=== PATIENT | male | born 1960 | race African-American/Black ===

== ENCOUNTER 2021-03-31 18:11 | Inpatient (IN) | payer SELFPAY ==
--- NOTE | 2021-03-31 18:29 | Event Note ---
ED Screening Note Date of service: 03/31/21 Time: 18:27 ED Screening Note: 61-year-old male patient presents to the emergency department with complaints of shortness of breath for 4 days. No known sick contacts. No current steroid antibiotic use. No recent travel. Patient was evaluated by an outside clinic prior to arrival and he was sent to the emergency department due to low oxygen saturation. States he has no known history of cardiopulmonary disease. Tachycardic and hypoxic on arrival. General: Awake, appropriately interactive, no acute distress. Neck: Supple. Full range of motion intact. Cardiovascular: Tachycardic. Normal peripheral perfusion. No lower extremity edema. Pulmonary: Mildly diminished breath sounds along both lung bases. No wheezing. No respiratory distress. Patient is speaking normally without use of accessory muscles. Skin: No apparent rashes or lesions. Neurological: No facial asymmetry. Speech is clear. Follows commands. Patient is alert and oriented. Musculoskeletal: Moves all four extremities spontaneously with normal range of motion. Psych: Cooperative. Appropriate mood and affect. library monitor, continuous pulse oximetry, supplemental oxygen, peripheral IV access requested. Labs including lactic acid + blood cultures and chest x-ray ordered. Charge nurse aware of need for monitored bed. I have greeted and performed a focused rapid initial assessment of this patient. A comprehensive ED assessment and evaluation of the patient, analysis of all test results, and completion of the medical decision-making process will be conducted by additional ED providers. This initial assessment/diagnostic orders/clinical plan/treatment(s) is/are subject to change based on patients health status, clinical progression and re-assessment. Further treatment and workup at subsequent clinical provider's discretion. Patient/guardian urged not to elope from the ED as their condition may be serious if not clinically assessed and managed.
[2021-03-31 18:57] LABS: Basophils # (Auto) 0.1 K/mm3 (0.0-0.1); Basophils % (Auto) 0.9 % (0.0-1.8); Eosinophils # (Auto) 0.2 K/mm3 (0.0-0.4); Eosinophils % (Auto) 1.9 % (0.0-4.3); Hematocrit 41.8 % (35.5-45.6); Hemoglobin 14.4 gm/dl (11.8-15.2); Lymphocytes # (Auto) 1.4 K/mm3 (1.2-5.4); Lymphocytes % (Auto) 13.7 % (13.4-35.0); Mean Corpuscular HGB Conc 35 % (32-34); Mean Corpuscular Volume 89 fl (84-94); Monocytes # (Auto) 0.4 K/mm3 (0.0-0.8); Monocytes % (Auto) 3.9 % (0.0-7.3); Platelet Count 359 K/mm3 (140-440); Red Blood Count 4.72 M/mm3 (3.65-5.03); Red Cell Distribution Width 13.5 % (13.2-15.2)
--- NOTE | 2021-03-31 18:57 | XRay Report ---
CHEST 2 VIEWS INDICATION: SOB. COMPARISON: None FINDINGS: SUPPORT DEVICES: None. HEART: Within normal limits. LUNGS/PLEURA: Moderate patchy multifocal airspace disease. No pneumothorax. ADDITIONAL FINDINGS: None. IMPRESSION: 1. Lung findings as above. Signer Name: Sloan Pierre MD Signed: 03/31/2021 6:53 PM Workstation Name: [id number]
[2021-03-31 19:20] LABS: Alanine Aminotransferase 91 units/L (7-56); Albumin 3.1 g/dL (3.9-5); BUN/Creatinine Ratio 22; Blood Urea Nitrogen 20 mg/dL (9-20); Calcium 8.6 mg/dL (8.4-10.2); Hemolysis Index 8
[2021-03-31] MEDS ORDERED: AZITHROMYCIN/NS 500 MG/250 ML 500 MG/250 ML BAG IV ONE (22:05)
[2021-03-31] MEDS ORDERED: cefTRIAXone/NS 2 GM/100 ML 2 GM/100 ML BAG IV ONE (22:05)
[2021-03-31] MEDS ORDERED: dexAMETHasone 4 MG/ML VIAL IV ONE (22:05)
--- NOTE | 2021-03-31 22:06 | Emergency Department Report ---
ED Shortness of Breath HPI - General Chief Complaint: Dyspnea/Respdistress Stated Complaint: DIFF BREATHING Time Seen by Provider: 03/31/21 21:32 Source: patient Mode of arrival: Ambulatory Limitations: No Limitations - History of Present Illness Initial Comments: Patient is a 61-year-old male who presents emergency room for shortness of breath, mild cough. Patient states his symptoms are going on for 4 days. Patient symptoms are worsening. Patient denies fever, nausea, vomiting or diarrhea. Patient states that his shortness of breath better with rest and worse with exertion. Patient states the oxygen that he was given at the clinic today also helped his shortness of breath. Patient states he went to a local urgent care/clinic and was sent here for hypoxia. Patient states they told him his oxygen level was 85% on room air at the clinic. Patient states they tested him at the clinic today and his COVID-19 test was negative. Patient states he is not vaccinated against COVID-19. Patient denies recent travel. Patient denies recent international travel. Patient denies exposure to the novel coronavirus. Patient denies sick contacts. Patient denies fever and chills. Patient denies loss of smell. Patient denies diarrhea. Patient denies coming in contact with anybody with symptoms of the novel coronavirus. MD Complaint: shortness of breath, cough -: Sudden, days(s) Severity: severe Consistency: constant Improves With: oxygen, rest Worsens With: exertion Context: recent URI Associated Symptoms: cough Treatments Prior to Arrival: none - Related Data Home Oxygen Therapy: No Allergies Allergy/AdvReac Type Severity Reaction Status Date / Time No Known Allergies Allergy Verified 03/31/21 18:14 ED Review of Systems ROS: Stated complaint: DIFF BREATHING Other details as noted in HPI Constitutional: denies: chills, fever Eyes: denies: eye pain, eye discharge, vision change ENT: denies: ear pain, throat pain Respiratory: see HPI, cough, shortness of breath. denies: wheezing Cardiovascular: denies: chest pain, palpitations Endocrine: no symptoms reported Gastrointestinal: denies: abdominal pain, nausea, diarrhea Genitourinary: denies: urgency, dysuria Musculoskeletal: denies: back pain, joint swelling, arthralgia Skin: denies: rash, lesions Neurological: denies: headache, weakness, paresthesias Psychiatric: denies: anxiety, depression Hematological/Lymphatic: denies: easy bleeding, easy bruising ED Past Medical Hx - Past Medical History Previous Medical History?: Yes Hx Hypertension: Yes - Surgical History Past Surgical History?: No - Family History Family history: no significant - Social History Smoking Status: Never Smoker Substance Use Type: None ED Physical Exam - General Limitations: No Limitations General appearance: alert, in distress - Head Head exam: Present: atraumatic, normocephalic - Eye Eye exam: Present: normal appearance - ENT ENT exam: Present: mucous membranes moist - Neck Neck exam: Present: normal inspection - Respiratory Respiratory exam: Present: respiratory distress, decreased breath sounds - Cardiovascular Cardiovascular Exam: Present: regular rate, normal rhythm. Absent: systolic murmur, diastolic murmur, rubs, gallop - GI/Abdominal GI/Abdominal exam: Present: soft, normal bowel sounds - Rectal Rectal exam: Present: deferred - Extremities Exam Extremities exam: Present: normal inspection - Back Exam Back exam: Present: normal inspection - Neurological Exam Neurological exam: Present: alert, oriented X3 - Psychiatric Psychiatric exam: Present: normal affect, normal mood - Skin Skin exam: Present: warm, dry, intact, normal color. Absent: rash ED Course Vital Signs 03/31/21 03/31/21 03/31/21 18:16 19:10 20:31 Temperature 97.9 F 98.5 F Pulse Rate 129 H 110 H 111 H Respiratory 22 20 Rate Blood Pressure 148/104 134/87 Blood Pressure [Right] O2 Sat by Pulse 91 94 Oximetry 04/01/21 04/01/21 01:30 03:09 Temperature Pulse Rate 87 Respiratory 22 27 H Rate Blood Pressure Blood Pressure 143/91 [Right] O2 Sat by Pulse 96 92 Oximetry - Reevaluation(s) Reevaluation #1: Patient is currently on 4 L of oxygen satting 94%. Patient will be given IV antibiotics and Decadron. 03/31/21 21:47 Reevaluation #2: I discussed all results with patient. I discussed plan of care with patient. Patient agrees with plan of care and admission. Patient to be admitted to the hospitalist service. 03/31/21 22:08 Reevaluation #3: While reviewing labs, patient's D-dimer was found to be elevated. I discussed with the hospitalist last week he has a CTA is indicated. A CT a of the chest will be ordered. 04/01/21 02:58 Reevaluation #4: CTA came back as a PE. Patient will be placed on a heparin drip. I discussed plan of care with patient. Patient agrees with plan of care. 04/01/21 05:40 - Consultations Consultation #1: Covid panel ordered and the hospitalist to follow. ID consulted. 03/31/21 22:05 Consultation #2: Hospitalist consulted for admission. Hospitalist to admit patient. 03/31/21 22:[address] information. 04/01/21 05:40 ED Medical Decision Making - Lab Data Result diagrams: 03/31/21 18:44 03/31/21 22:26 - Radiology Data Radiology results: report reviewed, image reviewed interpreted by me: Chest x-ray: Bilateral pneumonia, no pneumothorax, no foreign body, no osseous findings, CHEST 2 VIEWS INDICATION: SOB. COMPARISON: None FINDINGS: SUPPORT DEVICES: None. HEART: Within normal limits. LUNGS/PLEURA: Moderate patchy multifocal airspace disease. No pneumothorax. ADDITIONAL FINDINGS: None. IMPRESSION: 1. Lung findings as above. - Medical Decision Making Patient is a 61-year-old male who presents emergency with complaints of shortness of breath and mild cough. Patient was sent here from a local urgent care/clinic for hypoxia. Patient was found to have 85% oxygen level at the outpatient clinic. Patient was immediately placed on oxygen here. Patient on 4 L satting 94%. Patient had labs done which were essentially unremarkable. Patient had a chest x-ray done which shows bilateral viral appearing pneumonia. Chest x-ray is consistent with Covid infection. Patient states he had a negative Covid today. Patient given Rocephin, Decadron and Zithromax. ID consult. Patient admitted to the hospital service for further evaluation treatment. Patient's Covid panel and Covid test was ordered for the hospitalist to follow-up on. Critical care time documented due to the multiple reassessments, prolonged time at the bedside, interpretation of diagnostics and labs. After admission, the code panel came back with an elevated D-dimer. Due to the severe elevation, a CTA was ordered. I discussed this with the hospital service prior to ordering the CTA and they agree with the CTA order. Patient CT came back as a pulmonary embolism. Patient was then placed on a heparin protocol. - Differential Diagnosis Covid, PUI, pneumonia, SOB, cough, pneumonia Critical Care Time: Yes Critical care time in (mins) excluding proc time.: 35 Critical care attestation.: If time is entered above; I have spent that time in minutes in the direct care of this critically ill patient, excluding procedure time. Critical Care Time: 35 minutes ED Disposition Clinical Impression: SOB (shortness of breath), Cough, Person under investigation for COVID-19, Elevated d-dimer Pneumonia Qualifiers: Pneumonia type: due to unspecified organism Laterality: bilateral Lung location: unspecified part of lung Qualified Code(s): J18.9 - Pneumonia, unspecified organism Respiratory failure Qualifiers: Chronicity: acute Respiratory failure complication: hypoxia Qualified Code(s): J96.01 - Acute respiratory failure with hypoxia Pulmonary embolism Qualifiers: Pulmonary embolism type: unspecified Chronicity: acute Acute cor pulmonale presence: without acute cor pulmonale Qualified Code(s): I26.99 - Other pu lmonary embolism without acute cor pulmonale Disposition: 09 ADMITTED INPATIENT Is pt being admited?: Yes Does the pt Need Aspirin: No Condition: Critical Instructions: Bacterial Pneumonia (ED) Time of Disposition: 22:12
[2021-03-31] MEDS ORDERED: ONDANSETRON 4 MG/2 ML INJ IV PRN (22:47)
[2021-03-31] MEDS ORDERED: ALBUTEROL 2.5 MG/3 ML NEBU IH PRN (22:47)
[2021-03-31] MEDS ORDERED: ACETAMINOPHEN 325 MG TAB PO PRN (22:47)
[2021-03-31] MEDS ORDERED: oxyCODONE /ACETAMINOPHEN 5-325MG TAB PO PRN (22:47)
[2021-03-31] MEDS ORDERED: hydrALAZINE 20 MG/1 ML INJ IV PRN (22:50)
--- NOTE | 2021-03-31 22:56 | History and Physical Report ---
History of Present Illness Date of examination: 03/31/21 Date of admission: 03/31/21 Chief complaint: Shortness of breath History of present illness: 61-year-old male with past medical history of hypertension was brought to the hospital because of shortness of breath and coughing for 4 days. Patient symptoms are worsening. Patient denies fever, nausea, vomiting or diarrhea. Patient states that his shortness of breath better with rest and worse with exertion. Patient states the oxygen that he was given at the clinic today also helped his shortness of breath. Patient states he went to a local urgent care/clinic and was sent here for hypoxia. Patient states they told him his oxygen level was 85% on room air at the clinic. Patient states they tested him at the clinic today and his COVID-19 test was negative. Patient states he is not vaccinated against COVID-19. In the ER patient chest x-ray shows some moderate patchy multifocal airspace disease. She was going to admit the patient with the diagnosis of PUI. We will send the Covid PCR and consult ID Past History Past Medical History: hypertension Medications and Allergies Allergies Allergy/AdvReac Type Severity Reaction Status Date / Time No Known Allergies Allergy Verified 03/31/21 18:14 Active Meds: Active Medications Azithromycin (Zithromax/Ns) 500 mg in 250 mls @ 250 mls/hr IV ONCE ONE; Protocol Stop: 03/31/21 23:04 Review of Systems All systems: negative Cardiovascular: shortness of breath, dyspnea on exertion Respiratory: cough, shortness of breath, dyspnea on exertion Exam - Constitutional Vitals: Temp Pulse Resp BP Pulse Ox 98.5 F 111 H 20 134/87 94 03/31/21 20:31 03/31/21 20:31 03/31/21 20:31 03/31/21 20:31 03/31/21 20:31 General appearance: Present: no acute distress, well-nourished - EENT Eyes: Present: PERRL ENT: hearing intact, clear oral mucosa - Neck Neck: Present: supple, normal ROM - Respiratory Respiratory effort: normal Respiratory: bilateral: diminished - Cardiovascular Heart Sounds: Present: S1 & S2. Absent: rub, click - Extremities Extremities: pulses symmetrical, No edema Peripheral Pulses: within normal limits - Abdominal General gastrointestinal: Present: soft, non-tender, non-distended, normal bowel sounds Male genitourinary: Present: normal - Integumentary Integumentary: Present: clear, warm, dry - Musculoskeletal Musculoskeletal: gait normal, strength equal bilaterally - Psychiatric Psychiatric: appropriate mood/affect, intact judgment & insight - Neurologic Neurologic: CNII-XII intact, moves all extremities HEART Score - HEART Score Troponin: Troponin T < 0.010 ng/mL (0.00-0.029) 03/31/21 18:44 Results - Labs CBC & Chem 7: 04/01/21 04:14 03/31/21 22:26 Labs: Laboratory Last Values WBC 10.3 K/mm3 (4.5-11.0) 03/31/21 18:44 RBC 4.72 M/mm3 (3.65-5.03) 03/31/21 18:44 Hgb 14.4 gm/dl (11.8-15.2) 03/31/21 18:44 Hct 41.8 % (35.5-45.6) 03/31/21 18:44 MCV 89 fl (84-94) 03/31/21 18:44 MCH 31 pg (28-32) 03/31/21 18:44 MCHC 35 % (32-34) H 03/31/21 18:44 RDW 13.5 % (13.2-15.2) 03/31/21 18:44 Plt Count 359 K/mm3 (140-440) 03/31/21 18:44 Lymph % (Auto) 13.7 % (13.4-35.0) 03/31/21 18:44 [place] % (Auto) 3.9 % (0.0-7.3) 03/31/21 18:44 Eos % (Auto) 1.9 % (0.0-4.3) 03/31/21 18:44 Baso % (Auto) 0.9 % (0.0-1.8) 03/31/21 18:44 Lymph # (Auto) 1.4 K/mm3 (1.2-5.4) 03/31/21 18:44 [place] # (Auto) 0.4 K/mm3 (0.0-0.8) 03/31/21 18:44 Eos # (Auto) 0.2 K/mm3 (0.0-0.4) 03/31/21 18:44 Baso # (Auto) 0.1 K/mm3 (0.0-0.1) 03/31/21 18:44 Seg Neutrophils % 79.6 % (40.0-70.0) H 03/31/21 18:44 Seg Neutrophils # 8.2 K/mm3 (1.8-7.7) H 03/31/21 18:44 Sodium 140 mmol/L (137-145) 03/31/21 18:44 Potassium 3.8 mmol/L (3.6-5.0) 03/31/21 18:44 Chloride 104.7 mmol/L (98-107) 03/31/21 18:44 Carbon Dioxide 22 mmol/L (22-30) 03/31/21 18:44 Anion Gap 17 mmol/L 03/31/21 18:44 BUN 20 mg/dL (9-20) 03/31/21 18:44 Creatinine 0.9 mg/dL (0.8-1.3) 03/31/21 18:44 Estimated GFR > 60 ml/min 03/31/21 18:44 BUN/Creatinine Ratio 22 % 03/31/21 18:44 Glucose 146 mg/dL (75-100) H 03/31/21 18:44 Lactic Acid 1.90 mmol/L (0.7-2.0) 03/31/21 18:44 Calcium 8.6 mg/dL (8.4-10.2) 03/31/21 18:44 Magnesium 2.10 mg/dL (1.7-2.3) 03/31/21 18:44 Total Bilirubin 0.40 mg/dL (0.1-1.2) 03/31/21 18:44 AST 53 units/L (5-40) H 03/31/21 18:44 ALT 91 units/L (7-56) H 03/31/21 18:44 Alkaline Phosphatase 81 units/L (35-129) 03/31/21 18:44 Troponin T < 0.010 ng/mL (0.00-0.029) 03/31/21 18:44 NT-Pro-B Natriuret Pep 66.82 pg/mL (0-900) 03/31/21 18:44 Total Protein 7.9 g/dL (6.3-8.2) 03/31/21 18:44 Albumin 3.1 g/dL (3.9-5) L 03/31/21 18:44 Albumin/Globulin Ratio 0.6 % 03/31/21 18:44 Microbiology: Microbiology 03/31/21 18:44 Peripheral/Venous Blood Culture - Preliminary Culture in Progress 03/31/21 18:54 Peripheral/Venous Blood Culture - Preliminary Culture in Progress - Imaging and Cardiology Chest x-ray: report reviewed Assessment and Plan VTE prophylaxis?: Chemical Plan of care discussed with patient/family: Yes - Patient Problems (1) Person under investigation for COVID-19 Current Visit: Yes Status: Acute Plan to address problem: Admit the patient to the medical telemetry. Oxygen via nasal cannula at 4 L/min. DuoNeb by nebulizer every 4 hours. Rocephin 2 g IV daily. Zithromax 500 mg IV daily. Dexamethasone 6 mg IV daily. We will send the Covid PCR. Follow the Covid inflammatory marker. We will consult infectious disease evaluation. We also put the patient on zinc and ascorbic acid. (2) Pneumonia Current Visit: Yes Status: Acute Qualifiers: Pneumonia type: due to unspecified organism Laterality: bilateral Lung location: unspecified part of lung Qualified Code(s): J18.9 - Pneumonia, unspecified organism Plan to address problem: Rocephin 2 g IV daily and Zithromax 500 mg IV daily. We do the blood culture and sputum culture. Recheck CBC BMP in the morning (3) Respiratory failure Current Visit: Yes Status: Acute Qualifiers: Chronicity: acute Respiratory failure complication: hypoxia Qualified Code(s): J96.01 - Acute respiratory failure with hypoxia Plan to address problem: Oxygen per nasal cannula 4 L/min. DuoNeb by nebulizer every 4 hours. Albuterol via nebulizer every 4 hours as needed. Dexamethasone 6 mg IV daily. Reconsult infectious disease for evaluation (4) Hypertension Current Visit: No Status: Acute Plan to address problem: Hydralazine 10 mg IV every 6 hours as needed. We will continue the home medication. We will monitor the blood pressure closely (5) SOB (shortness of breath) Current Visit: Yes Status: Acute Plan to address problem: Oxygen per nasal cannula 4 L/min. DuoNeb by nebulizer every 4 hours. Albuterol via nebulizer every 4 hours as needed. (6) Pulmonary embolism Current Visit: Yes Status: Acute Qualifiers: Pulmonary embolism type: unspecified Chronicity: acute Acute cor pulmonale presence: without acute cor pulmonale Qualified Code(s): I26.99 - Other pulmonary embolism without acute cor pulmonale Plan to address problem: Chest CTA shows a small PE. We will put the patient on heparin drip (7) DVT prophylaxis Current Visit: No Status: Acute Plan to address problem: Heparin 5000 units subcu every 8 hours for DVT prophylaxis. Pepcid 20 mg p.o. twice daily for GI prophylaxis. Patient is a full code
[2021-04-01] MEDS: HYDROmorphone 1 MG/1 ML INJ IV PRN ×2 (00:40→04:12)
[2021-04-01] MEDS ORDERED: dexAMETHasone 4 MG/ML VIAL ONE (00:42)
[2021-04-01] MEDS ORDERED: cefTRIAXone/NS 2 GM/100 ML 2 GM/100 ML BAG IV ONE (00:44)
[2021-04-01] MEDS ORDERED: AZITHROMYCIN/NS 500 MG/250 ML 500 MG/250 ML BAG IV ONE (02:00)
[2021-04-01 02:46] LABS: C-Reactive Protein 8.9 mg/dL (0.00-1.30)
[2021-04-01] MEDS: IPRATROPIUM/ALBUTEROL SULFATE 3 ML AMPUL.NEB IH SCH ×4 (04:16→23:49)
--- NOTE | 2021-04-01 05:36 | Cat Scan Report ---
CTA CHEST WITH IV CONTRAST INDICATION: Acute onset chest pain with dyspnea TECHNIQUE: Axial CT images were obtained through the chest after injection of 100 mL Omnipaque 300 injected IV p er protocol. IV contrast. 3 plane MIP reconstructions were produced. All CT scans at this location ar e performed using CT dose reduction for ALARA by means of automated exposure control. COMPARISON: None available. FINDINGS: PULMONARY ARTERIES: Small embolus identified within the right middle lobe.. AORTA AND ARTERIES: No acute abnormality. MEDIASTINUM: Mediastinal adenopathy. The heart size is normal. LUNGS: No suspicious consolidation, nodule or mass. No pneumothorax or pleural effusion. ADDITIONAL FINDINGS: None. UPPER ABDOMEN: No acute findings. BONES: No significant osseous abnormality. IMPRESSION: 1. Small acute pulmonary thromboembolus identified involving the right middle lobe 2. Severe bilateral atypical pneumonia. CRITICAL RESULT: Acute PTE right middle lobe Time of Discovery: 4:30 AM on the day of the exam central time Time of Communication: 4:35 AM on the date of exam central time Licensed Practitioner Receiving Report: Matt HART Read Back Performed: Yes. Signer Name: Russel Leonard MD Signed: 04/01/2021 5:32 AM Workstation Name: [id number]
[2021-04-01] MEDS ORDERED: HEPARIN 10,000 UNITS/10 ML VIAL IV ONE (05:41)
[2021-04-01 05:48] LABS: Basophils % (Auto) 0.3 % (0.0-1.8); Eosinophils # (Auto) 0.1 K/mm3 (0.0-0.4); Eosinophils % (Auto) 0.5 % (0.0-4.3); Hematocrit 38.8 % (35.5-45.6); Hemoglobin 13.3 gm/dl (11.8-15.2); Lymphocytes # (Auto) 0.9 K/mm3 (1.2-5.4); Lymphocytes % (Auto) 8.9 % (13.4-35.0); Mean Corpuscular HGB Conc 34 % (32-34); Mean Corpuscular Volume 89 fl (84-94); Monocytes # (Auto) 0.2 K/mm3 (0.0-0.8); Monocytes % (Auto) 2.2 % (0.0-7.3); Platelet Count 343 K/mm3 (140-440); Red Blood Count 4.35 M/mm3 (3.65-5.03); Red Cell Distribution Width 13.2 % (13.2-15.2)
[2021-04-01] MEDS: HEPARIN/ 0.45% NACL DRIP 25,000 UNIT/500 ML BAG IV SCH (05:59)
[2021-04-01] MEDS ORDERED: HEPARIN 5,000 UNIT/1 ML VIAL SUB-Q SCH (06:00)
[2021-04-01 06:09] LABS: BUN/Creatinine Ratio 26; Blood Urea Nitrogen 21 mg/dL (9-20); Calcium 8.2 mg/dL (8.4-10.2); Hemolysis Index 6
[2021-04-01 07:50] LABS: INR 0.98 (0.87-1.13)
[2021-04-01 07:52] LABS: Partial Thromboplastin Time 27.7 Sec. (24.2-36.6)
--- NOTE | 2021-04-01 08:35 | Electrocardiograph Report ---
[facility] Test Date: 2021-03-31 Test Time: 19:11:49 Pat Name: MALIK PAGE Department: Room: A359 Gender: M Jewel Staker: JOSEPH : 1960 Requested By: MODESTO FUNEZ Order Number: [id number] Reading MD: Jesus Pizano Measurements Intervals [place] Rate: 105 P: 62 GA: 130 QRS: 30 QRSD: 101 T: 25 QT: 335 QTc: 443 Interpretive Statements Sinus tachycardia Inferior infarct, old No previous ECG available for comparison Electronically Signed On 04-01-2021 8:34:57 EDT by Jesus Pizano
--- NOTE | 2021-04-01 10:20 | Consultation ---
History of Present Illness - Reason for Consult Consult date: 04/01/21 - History of Present Illness 61-year-old man past medical history hypertension presented to hospital complaining of shortness of breath and coughing. This began 4 days prior to admission has been worsening since that time. Of any other symptoms. He went to urgent care and was hypoxic, and as such was sent to the emergency room. He is not vaccinated against Covid. Initial testing as an outpatient for Covid was negative. Afebrile since admission with a white count of 10.4. Normal renal function. Procalcitonin. Elevated liver enzymes and inflammatory markers. Pending Covid PCR. Blood cultures no growth so far. Currently on ceftriaxone and azithromycin with dexamethasone. Imaging personally reviewed: Chest CTA: Small PE in the right middle lobe. Severe bilateral pneumonia. Review of systems: Deferred to reduce to the risk of transmission of COVID-19 Past History Past Medical History: hypertension Medications and Allergies Allergies Allergy/AdvReac Type Severity Reaction Status Date / Time No Known Allergies Allergy Verified 03/31/21 18:14 Active Meds: Active Medications Acetaminophen (Acetaminophen 325 Mg Tab) 650 mg PO Q4H PRN PRN Reason: Pain MILD(1-3)/Fever >100.5/MOON Albuterol (Albuterol 2.5 Mg/3 Ml Nebu) 2.5 mg IH Q4HRT PRN PRN Reason: Shortness Of Breath Albuterol/Ipratropium (Ipratropium/Albuterol Sulfate 3 Ml Ampul.Neb) 1 ampul IH Q6HRT [facility] Last Admin: 04/01/21 09:01 Dose: 1 ampul Documented by: Ascorbic Acid (Ascorbic Acid 500 Mg Tab) 500 mg PO BID [facility] Dexamethasone (Dexamethasone 4 Mg/Ml Vial) 6 mg IV DAILY [facility] Famotidine (Famotidine 20 Mg Tab) 20 mg PO BID [facility] Hydralazine HCl (Hydralazine 20 Mg/1 Ml Inj) 10 mg IV Q6H PRN PRN Reason: Blood Pressure Hydromorphone HCl (Hydromorphone 1 Mg/1 Ml Inj) 0.5 mg IV Q3H PRN PRN Reason: Pain , Severe (7-10) Last Admin: 04/01/21 04:12 Dose: 0.5 mg Documented by: Ceftriaxone Sodium (Rocephin/Ns 2 Gm/100 Ml) 2 gm in 100 mls @ 200 mls/hr IV Q24H [facility]; Protocol Azithromycin (Zithromax/Ns) 500 mg in 250 mls @ 250 mls/hr IV Q24H [facility]; Protocol Heparin Sodium/Sodium Chloride (Heparin/ 0.45% Nacl-25,000 Unit/500 Ml) 25,000 unit in 500 mls @ 24 mls/hr IV TITR [facility]; Protocol Last Admin: 04/01/21 05:59 Dose: 1,200 units/hr, 24 mls/hr Documented by: Ondansetron HCl (Ondansetron 4 Mg/2 Ml Inj) 4 mg IV Q8H PRN PRN Reason: Nausea And Vomiting Oxycodone/Acetaminophen (Oxycodone /Acetaminophen 5-325mg Tab) 1 tab PO Q6H PRN PRN Reason: Pain, Moderate (4-6) Sodium Chloride (Sodium Chloride 0.9% 10 Ml Flush Syringe) 10 ml IV BID [facility] Sodium Chloride (Sodium Chloride 0.9% 10 Ml Flush Syringe) 10 ml IV PRN PRN PRN Reason: LINE FLUSH Zinc Sulfate (Zinc Sulfate 220 Mg Cap) 220 mg PO QDAY [facility] Physical Examination - Physical Exam Narrative exam: Physical exam deferred to reduce risk of transmission of COVID-19. Please refer to primary team's note. - Constitutional Vitals: Vital Signs Temp Pulse Resp BP Pulse Ox 98.5 F 113 H 17 143/91 92 03/31/21 20:31 04/01/21 09:13 04/01/21 09:13 04/01/21 03:09 04/01/21 03:09 Temperature -Last 24 Hours Temperature 98.5 F Temperature 97.9 F Results - Labs CBC & Chem 7: 04/01/21 04:14 04/01/21 04:14 Labs: Abnormal lab results 03/31/21 03/31/21 03/31/21 Range/Units 18:44 18:44 22:26 MCHC 35 H (32-34) % Lymph % (Auto) (13.4-35.0) % Lymph # (Auto) (1.2-5.4) K/mm3 Seg Neutrophils % 79.6 H (40.0-70.0) % Seg Neutrophils # 8.2 H (1.8-7.7) K/mm3 D-Dimer > 76909 H (0-234) ng/mlDDU BUN (9-20) mg/dL Glucose 146 H (75-100) mg/dL Calcium (8.4-10.2) mg/dL Ferritin (30.0-300.0) ng/mL AST 53 H (5-40) units/L ALT 91 H (7-56) units/L Lactate Dehydrogenase (91-180) units/L C-Reactive Protein (0.00-1.30) mg/dL Albumin 3.1 L (3.9-5) g/dL 03/31/21 03/31/21 04/01/21 Range/Units 22:26 22:26 04:14 MCHC (32-34) % Lymph % (Auto) 8.9 L (13.4-35.0) % Lymph # (Auto) 0.9 L (1.2-5.4) K/mm3 Seg Neutrophils % 88.1 H (40.0-70.0) % Seg Neutrophils # 9.2 H (1.8-7.7) K/mm3 D-Dimer (0-234) ng/mlDDU BUN (9-20) mg/dL Glucose 126 H (75-100) mg/dL Calcium (8.4-10.2) mg/dL Ferritin 1118.0 H (30.0-300.0) ng/mL AST (5-40) units/L ALT (7-56) units/L Lactate Dehydrogenase 610 H (91-180) units/L C-Reactive Protein 8.90 H (0.00-1.30) mg/dL Albumin (3.9-5) g/dL 04/01/21 Range/Units 04:14 MCHC (32-34) % Lymph % (Auto) (13.4-35.0) % Lymph # (Auto) (1.2-5.4) K/mm3 Seg Neutrophils % (40.0-70.0) % Seg Neutrophils # (1.8-7.7) K/mm3 D-Dimer (0-234) ng/mlDDU BUN 21 H (9-20) mg/dL Glucose 129 H (75-100) mg/dL Calcium 8.2 L (8.4-10.2) mg/dL Ferritin (30.0-300.0) ng/mL AST (5-40) units/L ALT (7-56) units/L Lactate Dehydrogenase (91-180) units/L C-Reactive Protein (0.00-1.30) mg/dL Albumin (3.9-5) g/dL Assessment and Plan Cultures: Blood culture no growth so far A/P: 61 yo M PMHx HTN admitted with COVID pneumonia. #Severe COVID-19 pneumonia: Patient presented with a week of symptoms, chest x- ray with diffuse bilateral infiltrates. Inflammatory markers elevated #Acute hypoxemic respiratory failure: Likely secondary to COVID-19 infection. Currently on 4L NC #PE: anticoagulation per hospital protocol. # Recs: -Dexamethasone 6 mg IV/PO daily for 10 days -Remdesivir 200 mg IV q day x 1 followed by 100 mg IV q day x 4 days -Obtain q48-72h inflammatory markers - ferritin, Ddimer, CRP, LDH -Continue ceftriaxone 2 gm IV qday and azithromycin 500 mg PO qday, if procalcitonin <0.25 ng/mL stop antibiotics -Anticoagulation per hospital protocol -Proning as able Thank you for the consult, we will continue to follow. MD Yisel Pe[facility] O: [phone] F: [phone]
[2021-04-01] MEDS ORDERED: REMDESIVIR 200 MG in SODIUM CHLORIDE 0.9% 250ML 250 ML IV ONE (10:23)
[2021-04-01] MEDS: FAMOTIDINE 20 MG TAB PO SCH ×2 (12:15→21:07)
[2021-04-01] MEDS: dexAMETHasone 4 MG/ML VIAL IV SCH (12:15)
[2021-04-01] MEDS: ASCORBIC ACID 500 MG TAB PO SCH ×2 (12:17→21:07)
[2021-04-01] MEDS: ZINC SULFATE 220 MG CAP PO SCH (12:17)
--- NOTE | 2021-04-01 19:55 | Progress Note ---
Assessment and Plan Assessment and plan: -- Person under investigation for COVID-19 Current Visit: Yes Status: Acute Oxygen via nasal cannula at 4 L/min. DuoNeb by nebulizer every 4 hours. Rocephin 2 g IV daily. Zithromax 500 mg IV daily. Dexamethasone 6 mg IV daily. We will send the Covid PCR. Follow the Covid inflammatory marker. We will consult infectious disease evaluation. We also put the patient on zinc and ascorbic acid. --Pneumonia Current Visit: Yes Status: Acute Rocephin 2 g IV daily and Zithromax 500 mg IV daily. We do the blood culture and sputum culture. Recheck CBC BMP in the morning --Respiratory failure Current Visit: Yes Status: Acute Oxygen per nasal cannula 4 L/min. DuoNeb by nebulizer every 4 hours. Albuterol via nebulizer every 4 hours as needed. Dexamethasone 6 mg IV daily. Reconsult infectious disease for evaluation -- Hypertension Current Visit: No Status: Acute Hydralazine 10 mg IV every 6 hours as needed. We will continue the home medication. We will monitor the blood pressure closely --SOB (shortness of breath) Current Visit: Yes Status: Acute Oxygen per nasal cannula 4 L/min. DuoNeb by nebulizer every 4 hours. Albuterol via nebulizer every 4 hours as needed. -- Pulmonary embolism Current Visit: Yes Status: Acute Chest CTA shows a small PE. We will put the patient on heparin drip --DVT prophylaxis Current Visit: No Status: Acute Heparin 5000 units subcu every 8 hours for DVT prophylaxis. Pepcid 20 mg p.o. twice daily for GI prophylaxis. Patient is a full code We will closely monitor the patient and adjust the management as needed History Interval history: Patient was admitted as [facility] PCR test sent Patient is slightly hypoxic requiring 3 L nasal cannula oxygen Hospitalist Physical - Constitutional Vitals: Temp Pulse Resp BP Pulse Ox 97.4 F L 108 H 18 154/104 95 04/01/21 11:43 04/01/21 13:30 04/01/21 13:30 04/01/21 11:43 04/01/21 13:30 General appearance: Present: no acute distress, well-nourished - EENT Eyes: Present: PERRL, EOM intact - Neck Neck: Present: supple, normal ROM - Respiratory Respiratory effort: normal Respiratory: bilateral: diminished, rhonchi, negative: rales, wheezing - Cardiovascular Rhythm: regular Heart Sounds: Present: S1 & S2 - Extremities Extremities: no ischemia, No edema - Abdominal General gastrointestinal: soft, non-tender, non-distended, normal bowel sounds - Integumentary Integumentary: Present: clear, warm - Psychiatric Psychiatric: appropriate mood/affect, cooperative - Neurologic Neurologic: CNII-XII intact, moves all extremities HEART Score - HEART Score Troponin: Troponin T < 0.010 ng/mL (0.00-0.029) 03/31/21 18:44 Results - Labs CBC & Chem 7: 04/01/21 04:14 04/01/21 04:14 Labs: Laboratory Last Values WBC 10.4 K/mm3 (4.5-11.0) 04/01/21 04:14 RBC 4.35 M/mm3 (3.65-5.03) 04/01/21 04:14 Hgb 13.3 gm/dl (11.8-15.2) 04/01/21 04:14 Hct 38.8 % (35.5-45.6) 04/01/21 04:14 MCV 89 fl (84-94) 04/01/21 04:14 MCH 31 pg (28-32) 04/01/21 04:14 MCHC 34 % (32-34) 04/01/21 04:14 RDW 13.2 % (13.2-15.2) 04/01/21 04:14 Plt Count 343 K/mm3 (140-440) 04/01/21 04:14 Lymph % (Auto) 8.9 % (13.4-35.0) L 04/01/21 04:14 [place] % (Auto) 2.2 % (0.0-7.3) 04/01/21 04:14 Eos % (Auto) 0.5 % (0.0-4.3) 04/01/21 04:14 Baso % (Auto) 0.3 % (0.0-1.8) 04/01/21 04:14 Lymph # (Auto) 0.9 K/mm3 (1.2-5.4) L 04/01/21 04:14 [place] # (Auto) 0.2 K/mm3 (0.0-0.8) 04/01/21 04:14 Eos # (Auto) 0.1 K/mm3 (0.0-0.4) 04/01/21 04:14 Baso # (Auto) 0.0 K/mm3 (0.0-0.1) 04/01/21 04:14 Seg Neutrophils % 88.1 % (40.0-70.0) H 04/01/21 04:14 Seg Neutrophils # 9.2 K/mm3 (1.8-7.7) H 04/01/21 04:14 PT 13.5 Sec. (12.2-14.9) 03/31/21 22:26 INR 0.98 (0.87-1.13) 03/31/21 22:26 APTT 27.7 Sec. (24.2-36.6) 03/31/21 22:26 D-Dimer > 02080 ng/mlDDU (0-234) H 03/31/21 22:26 Heparin Anti-Xa Level < 0.10 U.I./ml (0.3-0.7) L 04/01/21 13:48 Sodium 140 mmol/L (137-145) 04/01/21 04:14 Potassium 4.6 mmol/L (3.6-5.0) D 04/01/21 04:14 Chloride 106.7 mmol/L (98-107) 04/01/21 04:14 Carbon Dioxide 23 mmol/L (22-30) 04/01/21 04:14 Anion Gap 15 mmol/L 04/01/21 04:14 BUN 21 mg/dL (9-20) H 04/01/21 04:14 Creatinine 0.8 mg/dL (0.8-1.3) 04/01/21 04:14 Estimated GFR > 60 ml/min 04/01/21 04:14 BUN/Creatinine Ratio 26 % 04/01/21 04:14 Glucose 129 mg/dL (75-100) H 04/01/21 04:14 Lactic Acid 1.90 mmol/L (0.7-2.0) 03/31/21 18:44 Calcium 8.2 mg/dL (8.4-10.2) L 04/01/21 04:14 Magnesium 2.10 mg/dL (1.7-2.3) 03/31/21 18:44 Ferritin 1118.0 ng/mL (30.0-300.0) H 03/31/21 22:26 Total Bilirubin 0.40 mg/dL (0.1-1.2) 03/31/21 18:44 AST 53 units/L (5-40) H 03/31/21 18:44 ALT 91 units/L (7-56) H 03/31/21 18:44 Alkaline Phosphatase 81 units/L (35-129) 03/31/21 18:44 Lactate Dehydrogenase 610 units/L (91-180) H 03/31/21 22:26 Troponin T < 0.010 ng/mL (0.00-0.029) 03/31/21 18:44 C-Reactive Protein 8.90 mg/dL (0.00-1.30) H 03/31/21 22:26 NT-Pro-B Natriuret Pep 66.82 pg/mL (0-900) 03/31/21 18:44 Total Protein 7.9 g/dL (6.3-8.2) 03/31/21 18:44 Albumin 3.1 g/dL (3.9-5) L 03/31/21 18:44 Albumin/Globulin Ratio 0.6 % 03/31/21 18:44 Coronavirus (PCR) Negative (Negative) 03/31/21 Unknown Microbiology: Microbiology 03/31/21 18:44 Peripheral/Venous Blood Culture - Preliminary NO GROWTH AFTER 24 HOURS 03/31/21 18:54 Peripheral/Venous Blood Culture - Preliminary NO GROWTH AFTER 24 HOURS Active Medications - Current Medications Current Medications: Generic Name Dose Route Start Last Admin Trade Name Bandar PRN Reason Stop Dose Admin Acetaminophen 650 mg 03/31/21 22:47 Acetaminophen 325 Mg Tab PO Q4H PRN Pain MILD(1-3)/Fever >100.5/MOON Albuterol 2.5 mg 03/31/21 22:47 Albuterol 2.5 Mg/3 Ml Nebu IH Q4HRT PRN Shortness Of Breath Albuterol/Ipratropium 1 ampul 04/01/21 02:00 04/01/21 13:39 Ipratropium/Albuterol Sulfate 3 Ml Ampul.Neb IH 1 ampul Q6HRT [facility] Administration Ascorbic Acid 500 mg 04/01/21 10:00 04/01/21 12:17 Ascorbic Acid 500 Mg Tab PO Not Given BID [facility] Dexamethasone 6 mg 04/01/21 10:00 04/01/21 12:15 Dexamethasone 4 Mg/Ml Vial IV 04/09/21 10:01 Not Given DAILY [facility] Famotidine 20 mg 04/01/21 10:00 04/01/21 12:15 Famotidine 20 Mg Tab PO Not Given BID [facility] Hydralazine HCl 10 mg 03/31/21 22:50 Hydralazine 20 Mg/1 Ml Inj IV Q6H PRN Blood Pressure Hydromorphone HCl 0.5 mg 03/31/21 22:47 04/01/21 04:12 Hydromorphone 1 Mg/1 Ml Inj IV 0.5 mg Q3H PRN Administration Pain , Severe (7-10) Ceftriaxone Sodium 2 gm in 100 mls @ 200 mls/hr 04/01/21 22:00 Rocephin/Ns 2 Gm/100 Ml IV Q24H [facility] Protocol Azithromycin 500 mg in 250 mls @ 250 mls/hr 04/01/21 22:00 Zithromax/Ns IV Q24H [facility] Protocol Heparin Sodium/Sodium Chloride 25,000 unit in 500 mls @ 24 mls/hr 04/01/21 06:00 04/01/21 05:59 Heparin/ 0.45% Nacl-25,000 Unit/500 Ml IV 1,200 units/hr TITR [facility] 24 mls/hr Administration Protocol 1,200 UNITS/HR REMDESIVIR 200 mg/ Sodium 250 mls @ 500 mls/hr 04/01/21 10:23 Chloride IV 04/01/21 10:52 ONCE ONE REMDESIVIR 100 mg/ Sodium 250 mls @ 500 mls/hr 04/02/21 21:00 Chloride IV 04/05/21 21:29 Q24HR@2100 [facility] Ondansetron HCl 4 mg 03/31/21 22:47 Ondansetron 4 Mg/2 Ml Inj IV Q8H PRN Nausea And Vomiting Oxycodone/Acetaminophen 1 tab 03/31/21 22:47 Oxycodone /Acetaminophen 5-325mg Tab PO Q6H PRN Pain, Moderate (4-6) Sodium Chloride 10 ml 04/01/21 10:00 04/01/21 12:17 Sodium Chloride 0.9% 10 Ml Flush Syringe IV Not Given BID [facility] Sodium Chloride 10 ml 03/31/21 22:47 Sodium Chloride 0.9% 10 Ml Flush Syringe IV PRN PRN LINE FLUSH Sodium Chloride 50 ml 04/01/21 21:00 Sodium Chloride 0.9% 50 Ml Ivpb IV 04/05/21 21:01 Q24HR@2100 [facility] Zinc Sulfate 220 mg 04/01/21 10:00 04/01/21 12:17 Zinc Sulfate 220 Mg Cap PO Not Given QDAY [facility]
[2021-04-01] MEDS ORDERED: SODIUM CHLORIDE 0.9% 50 ML IVPB IV SCH (21:00)
[2021-04-01] MEDS ORDERED: cefTRIAXone/NS 2 GM/100 ML 2 GM/100 ML BAG IV SCH (22:00)
[2021-04-01] MEDS ORDERED: AZITHROMYCIN/NS 500 MG/250 ML 500 MG/250 ML BAG IV SCH (22:00)
[2021-04-02] MEDS: IPRATROPIUM/ALBUTEROL SULFATE 3 ML AMPUL.NEB IH SCH ×4 (02:57→21:10)
[2021-04-02 05:45] LABS: Alanine Aminotransferase 104 units/L (7-56); Albumin 3.1 g/dL (3.9-5); Blood Urea Nitrogen 22 mg/dL (9-20); Calcium 8.2 mg/dL (8.4-10.2); Hemolysis Index 3
[2021-04-02 05:50] LABS: BUN/Creatinine Ratio 31
[2021-04-02] MEDS: HEPARIN/ 0.45% NACL DRIP 25,000 UNIT/500 ML BAG IV SCH ×2 (06:06→21:59)
[2021-04-02] MEDS: ASCORBIC ACID 500 MG TAB PO SCH ×3 (07:52→22:01)
[2021-04-02] MEDS: FAMOTIDINE 20 MG TAB PO SCH ×3 (07:52→22:01)
[2021-04-02] MEDS: dexAMETHasone 4 MG/ML VIAL IV SCH ×2 (07:52→10:59)
[2021-04-02] MEDS: ZINC SULFATE 220 MG CAP PO SCH ×2 (07:53→10:59)
--- NOTE | 2021-04-02 11:37 | Progress Note ---
Assessment and Plan Assessment and plan: Discussed patient's condition and treatment plan with the patient over the patient's speaker phone through Turkmen speaking promotion officer who is the patient's friend Mr. Shay --COVID-19 negative Current Visit: Yes Status: Acute May DC isolation --Pneumonia Current Visit: Yes Status: Acute Rocephin 2 g IV daily and Zithromax 500 mg IV daily. Follow the blood cultures -- Pulmonary embolism Current Visit: Yes Status: Acute Chest CTA shows a small PE. Continue heparin drip Check lower extremity venous Doppler --Respiratory failure Current Visit: Yes Status: Acute Oxygen per nasal cannula 4 L/min. DuoNeb by nebulizer every 4 hours. Albuterol via nebulizer every 4 hours as needed. Dexamethasone 6 mg IV daily. Reconsult infectious disease for evaluation -- Hypertension Current Visit: No Status: Acute Hydralazine 10 mg IV every 6 hours as needed. We will continue the home medication. We will monitor the blood pressure closely --SOB (shortness of breath) Current Visit: Yes Status: Acute Oxygen per nasal cannula 4 L/min. DuoNeb by nebulizer every 4 hours. Albuterol via nebulizer every 4 hours as needed. --DVT prophylaxis Current Visit: No Status: Acute Heparin 5000 units subcu every 8 hours for DVT prophylaxis. Pepcid 20 mg p.o. twice daily for GI prophylaxis. Patient is a full code We will closely monitor the patient and adjust the management as needed Follow lower extremity venous Doppler, and transition to Eliquis after the Doppler report. Daily Hospital course. 04/02/2021; COVID-19 test negative. Received isolation Procalcitonin low, DC empiric antibiotics Small pulmonary embolism/on heparin Pending requested venous Doppler on 04/01/21 Discussed patient's condition and treatment plan with the patient through Turkmen speaking promotion officer who is the patient's friend Mr. Shay History Interval history: I seen and examined the patient at the bedside this morning Patient is Covid 19 negative I communicated with him through the interpretation by the Turkmen speaking friend Jaspal over patient's speaker cell phone. Patient says he feels better, Does not have any complaints Denies chest pain or shortness of breath Hospitalist Physical - Constitutional Vitals: Temp Pulse Resp BP Pulse Ox 98.6 F 96 H 20 165/107 92 04/01/21 23:11 04/02/21 09:36 04/02/21 09:36 04/01/21 23:11 04/02/21 09:36 General appearance: Present: no acute distress, well-nourished - EENT Eyes: Present: PERRL, EOM intact - Neck Neck: Present: supple, normal ROM - Respiratory Respiratory effort: normal Respiratory: bilateral: diminished, negative: rales, rhonchi, wheezing - Cardiovascular Rhythm: regular Heart Sounds: Present: S1 & S2 - Extremities Extremities: no ischemia, No edema - Abdominal General gastrointestinal: soft, non-tender, non-distended, normal bowel sounds - Integumentary Integumentary: Present: clear, warm - Psychiatric Psychiatric: appropriate mood/affect, cooperative - Neurologic Neurologic: CNII-XII intact, moves all extremities HEART Score - HEART Score Troponin: Troponin T < 0.010 ng/mL (0.00-0.029) 03/31/21 18:44 Results - Labs CBC & Chem 7: 04/01/21 04:14 04/02/21 04:18 Labs: Laboratory Last Values WBC 10.4 K/mm3 (4.5-11.0) 04/01/21 04:14 RBC 4.35 M/mm3 (3.65-5.03) 04/01/21 04:14 Hgb 13.3 gm/dl (11.8-15.2) 04/01/21 04:14 Hct 38.8 % (35.5-45.6) 04/01/21 04:14 MCV 89 fl (84-94) 04/01/21 04:14 MCH 31 pg (28-32) 04/01/21 04:14 MCHC 34 % (32-34) 04/01/21 04:14 RDW 13.2 % (13.2-15.2) 04/01/21 04:14 Plt Count 343 K/mm3 (140-440) 04/01/21 04:14 Lymph % (Auto) 8.9 % (13.4-35.0) L 04/01/21 04:14 [place] % (Auto) 2.2 % (0.0-7.3) 04/01/21 04:14 Eos % (Auto) 0.5 % (0.0-4.3) 04/01/21 04:14 Baso % (Auto) 0.3 % (0.0-1.8) 04/01/21 04:14 Lymph # (Auto) 0.9 K/mm3 (1.2-5.4) L 04/01/21 04:14 [place] # (Auto) 0.2 K/mm3 (0.0-0.8) 04/01/21 04:14 Eos # (Auto) 0.1 K/mm3 (0.0-0.4) 04/01/21 04:14 Baso # (Auto) 0.0 K/mm3 (0.0-0.1) 04/01/21 04:14 Seg Neutrophils % 88.1 % (40.0-70.0) H 04/01/21 04:14 Seg Neutrophils # 9.2 K/mm3 (1.8-7.7) H 04/01/21 04:14 PT 13.5 Sec. (12.2-14.9) 03/31/21 22:26 INR 0.98 (0.87-1.13) 03/31/21 22:26 APTT 27.7 Sec. (24.2-36.6) 03/31/21 22:26 D-Dimer > 79696 ng/mlDDU (0-234) H 03/31/21 22:26 Heparin Anti-Xa Level 0.23 U.I./ml (0.3-0.7) L 04/02/21 04:18 Sodium 142 mmol/L (137-145) 04/02/21 04:18 Potassium 4.1 mmol/L (3.6-5.0) 04/02/21 04:18 Chloride 108.3 mmol/L (98-107) H 04/02/21 04:18 Carbon Dioxide 21 mmol/L (22-30) L 04/02/21 04:18 Anion Gap 17 mmol/L 04/02/21 04:18 BUN 22 mg/dL (9-20) H 04/02/21 04:18 Creatinine 0.7 mg/dL (0.8-1.3) L 04/02/21 04:18 Estimated GFR > 60 ml/min 04/02/21 04:18 BUN/Creatinine Ratio 31 % 04/02/21 04:18 Glucose 103 mg/dL (75-100) H 04/02/21 04:18 Lactic Acid 1.90 mmol/L (0.7-2.0) 03/31/21 18:44 Calcium 8.2 mg/dL (8.4-10.2) L 04/02/21 04:18 Magnesium 2.10 mg/dL (1.7-2.3) 03/31/21 18:44 Ferritin 1118.0 ng/mL (30.0-300.0) H 03/31/21 22:26 Total Bilirubin 0.50 mg/dL (0.1-1.2) 04/02/21 04:18 AST 68 units/L (5-40) H 04/02/21 04:18 ALT 104 units/L (7-56) H 04/02/21 04:18 Alkaline Phosphatase 69 units/L (35-129) 04/02/21 04:18 Lactate Dehydrogenase 610 units/L (91-180) H 03/31/21 22:26 Troponin T < 0.010 ng/mL (0.00-0.029) 03/31/21 18:44 C-Reactive Protein 8.90 mg/dL (0.00-1.30) H 03/31/21 22:26 NT-Pro-B Natriuret Pep 66.82 pg/mL (0-900) 03/31/21 18:44 Total Protein 6.9 g/dL (6.3-8.2) 04/02/21 04:18 Albumin 3.1 g/dL (3.9-5) L 04/02/21 04:18 Albumin/Globulin Ratio 0.8 % 04/02/21 04:18 Procalcitonin 0.05 ng/mL (<0.15) 03/31/21 22:26 Coronavirus (PCR) Negative (Negative) 03/31/21 Unknown Microbiology: Microbiology 03/31/21 18:44 Peripheral/Venous Blood Culture - Preliminary NO GROWTH AFTER 24 HOURS 03/31/21 18:54 Peripheral/Venous Blood Culture - Preliminary NO GROWTH AFTER 24 HOURS Active Medications - Current Medications Current Medications: Generic Name Dose Route Start Last Admin Trade Name Freq PRN Reason Stop Dose Admin Acetaminophen 650 mg 03/31/21 22:47 Acetaminophen 325 Mg Tab PO Q4H PRN Pain MILD(1-3)/Fever >100.5/MOON Albuterol 2.5 mg 03/31/21 22:47 Albuterol 2.5 Mg/3 Ml Nebu IH Q4HRT PRN Shortness Of Breath Albuterol/Ipratropium 1 ampul 04/01/21 02:00 04/02/21 09:36 Ipratropium/Albuterol Sulfate 3 Ml Ampul.Neb IH 1 ampul Q6HRT [facility]RE[facility] Administration Ascorbic Acid 500 mg 04/01/21 10:00 04/02/21 10:59 Ascorbic Acid 500 Mg Tab PO Not Given BID [facility] Dexamethasone 6 mg 04/01/21 10:00 04/02/21 10:59 Dexamethasone 4 Mg/Ml Vial IV 04/09/21 10:01 Not Given DAILY [facility] Famotidine 20 mg 04/01/21 10:00 04/02/21 10:59 Famotidine 20 Mg Tab PO Not Given BID [facility] Hydralazine HCl 10 mg 03/31/21 22:50 Hydralazine 20 Mg/1 Ml Inj IV Q6H PRN Blood Pressure Hydromorphone HCl 0.5 mg 03/31/21 22:47 04/01/21 04:12 Hydromorphone 1 Mg/1 Ml Inj IV 0.5 mg Q3H PRN Administration Pain , Severe (7-10) Ceftriaxone Sodium 2 gm in 100 mls @ 200 mls/hr 04/01/21 22:00 04/01/21 21:00 Rocephin/Ns 2 Gm/100 Ml IV 200 mls/hr Q24H [facility] Administration Protocol Azithromycin 500 mg in 250 mls @ 250 mls/hr 04/01/21 22:00 04/01/21 21:37 Zithromax/Ns IV 250 mls/hr Q24H [facility] Administration Protocol Heparin Sodium/Sodium Chloride 25,000 unit in 500 mls @ 24 mls/hr 04/01/21 06:00 04/02/21 06:06 Heparin/ 0.45% Nacl-25,000 Unit/500 Ml IV 1,400 units/hr TITR DARRELL 28 mls/hr Administration Protocol 1,200 UNITS/HR REMDESIVIR 200 mg/ Sodium 250 mls @ 500 mls/hr 04/01/21 10:23 Chloride IV 04/01/21 10:52 ONCE ONE REMDESIVIR 100 mg/ Sodium 250 mls @ 500 mls/hr 04/02/21 21:00 Chloride IV 04/05/21 21:29 Q24HR@2100 [facility] Ondansetron HCl 4 mg 03/31/21 22:47 Ondansetron 4 Mg/2 Ml Inj IV Q8H PRN Nausea And Vomiting Oxycodone/Acetaminophen 1 tab 03/31/21 22:47 Oxycodone /Acetaminophen 5-325mg Tab PO Q6H PRN Pain, Moderate (4-6) Sodium Chloride 10 ml 04/01/21 10:00 04/02/21 10:59 Sodium Chloride 0.9% 10 Ml Flush Syringe IV Not Given BID [facility] Sodium Chloride 10 ml 03/31/21 22:47 04/01/21 21:08 Sodium Chloride 0.9% 10 Ml Flush Syringe IV 10 ml PRN PRN Administration LINE FLUSH Sodium Chloride 50 ml 04/01/21 21:00 Sodium Chloride 0.9% 50 Ml Ivpb IV 04/05/21 21:01 [id number] [facility] Zinc Sulfate 220 mg 04/01/21 10:00 04/02/21 10:59 Zinc Sulfate 220 Mg Cap PO Not Given QDAY [facility]
[2021-04-02] MEDS ORDERED: REMDESIVIR 100 MG in SODIUM CHLORIDE 0.9% 250ML 250 ML IV SCH (21:00)
[2021-04-03 05:07] LABS: Hematocrit 38.9 % (35.5-45.6); Hemoglobin 13.3 gm/dl (11.8-15.2)
[2021-04-03 05:26] LABS: Alanine Aminotransferase 95 units/L (7-56); Albumin 3.1 g/dL (3.9-5); BUN/Creatinine Ratio 23; Blood Urea Nitrogen 21 mg/dL (9-20); Calcium 8.5 mg/dL (8.4-10.2); Hemolysis Index 4
[2021-04-03] MEDS: IPRATROPIUM/ALBUTEROL SULFATE 3 ML AMPUL.NEB IH SCH ×3 (08:16→22:04)
[2021-04-03] MEDS: FAMOTIDINE 20 MG TAB PO SCH ×2 (09:13→22:28)
[2021-04-03] MEDS: ASCORBIC ACID 500 MG TAB PO SCH ×2 (09:13→22:28)
[2021-04-03] MEDS: ZINC SULFATE 220 MG CAP PO SCH (09:13)
[2021-04-03] MEDS: dexAMETHasone 4 MG/ML VIAL IV SCH (09:13)
[2021-04-03 10:29] LABS: Hematocrit 41.1 % (35.5-45.6); Hemoglobin 13.5 gm/dl (11.8-15.2); Mean Corpuscular HGB Conc 33 % (32-34); Mean Corpuscular Volume 89 fl (84-94); Platelet Count 419 K/mm3 (140-440); Red Blood Count 4.62 M/mm3 (3.65-5.03); Red Cell Distribution Width 13.5 % (13.2-15.2)
[2021-04-03 10:40] LABS: INR 1.02 (0.87-1.13)
[2021-04-03 10:41] LABS: Partial Thromboplastin Time 38.3 Sec. (24.2-36.6)
--- NOTE | 2021-04-03 11:41 | Vascular Lab Report ---
DUPLEX DOPPLER LOWER EXTREMITY VEINS, BILATERAL INDICATION: Patient has PE/rule out DVT. TECHNIQUE: Duplex doppler imaging was performed through the veins of both lower extremities using venous kvng capo and other maneuvers. COMPARISON: None available. FINDINGS: Right Common Femoral vein: Negative. Right Superficial Femoral vein: Negative. Right Popliteal vein: Negative. Right Calf veins: Negative. Left Common Femoral vein: Negative. Left Superficial Femoral vein: Negative. Left Popliteal vein: Negative. Left Calf veins: Negative. Additional findings: None. IMPRESSION: 1. No sonographic evidence for DVT in either lower extremity. Signer Name: Sharmaine Mak MD Signed: 04/03/2021 11:37 AM Workstation Name: [id number]
[2021-04-03] MEDS: APIXABAN 5 MG TAB PO SCH ×2 (14:27→22:28)
--- NOTE | 2021-04-03 19:24 | Progress Note ---
Assessment and Plan Assessment and plan: Discussed patient's condition and treatment plan with the patient over the patient's speaker phone through Ivorian speaking motor and generator brush cutter who is the patient's friend Mr. Shay --COVID-19 negative --Pneumonia Current Visit: Yes Status: Acute Empiric antibiotics discontinued as procalcitonin is low -- Pulmonary embolism Current Visit: Yes Status: Acute Chest CTA shows a small PE. Transition heparin drip to Eliquis Check lower extremity venous Doppler to evaluate for DVT --Respiratory failure Current Visit: Yes Status: Acute Oxygen per nasal cannula 4 L/min. DuoNeb by nebulizer every 4 hours. Albuterol via nebulizer every 4 hours as needed. Dexamethasone 6 mg IV daily. Reconsult infectious disease for evaluation -- Hypertension Current Visit: No Status: Acute Hydralazine 10 mg IV every 6 hours as needed. We will continue the home medication. We will monitor the blood pressure closely --SOB (shortness of breath) Current Visit: Yes Status: Acute Oxygen per nasal cannula 4 L/min. DuoNeb by nebulizer every 4 hours. Albuterol via nebulizer every 4 hours as needed. --DVT prophylaxis Current Visit: No Status: Acute Heparin 5000 units subcu every 8 hours for DVT prophylaxis. Pepcid 20 mg p.o. twice daily for GI prophylaxis. Patient is a full code We will closely monitor the patient and adjust the management as needed Follow lower extremity venous Doppler, and transition to Eliquis after the Doppler report. Daily Hospital course. 04/02/2021; COVID-19 test negative. Received isolation Procalcitonin low, DC empiric antibiotics Small pulmonary embolism/on heparin Pending requested venous Doppler on 04/01/21 Discussed patient's condition and treatment plan with the patient through Ivorian speaking motor and generator brush cutter who is the patient's friend Mr. Shay 04/03; patient is on heparin drip for PE transition to Eliquis per protocol Pending lower extremity Doppler, home oxygen evaluation prior to discharge History Interval history: I have seen and examined the patient this afternoon Patient's chart and medications reviewed Patient complains of mild shortness of breath, denies chest pain Hospitalist Physical - Constitutional Vitals: Temp Pulse Resp BP Pulse Ox 97.8 F 96 H 18 130/84 94 04/03/21 16:04 04/03/21 16:04 04/03/21 16:04 04/03/21 16:04 04/03/21 16:04 General appearance: Present: no acute distress, well-nourished - EENT Eyes: Present: PERRL, EOM intact - Neck Neck: Present: supple, normal ROM - Respiratory Respiratory effort: normal Respiratory: bilateral: diminished, negative: rales, rhonchi, wheezing - Cardiovascular Rhythm: regular Heart Sounds: Present: S1 & S2 - Extremities Extremities: no ischemia, No edema - Abdominal General gastrointestinal: soft, non-tender, non-distended, normal bowel sounds - Integumentary Integumentary: Present: clear, warm - Psychiatric Psychiatric: appropriate mood/affect, cooperative - Neurologic Neurologic: CNII-XII intact, moves all extremities HEART Score - HEART Score Troponin: Troponin T < 0.010 ng/mL (0.00-0.029) 03/31/21 18:44 Results - Labs CBC & Chem 7: 04/03/21 09:51 04/03/21 09:51 Labs: Laboratory Last Values WBC 10.5 K/mm3 (4.5-11.0) 04/03/21 09:51 RBC 4.62 M/mm3 (3.65-5.03) 04/03/21 09:51 Hgb 13.5 gm/dl (11.8-15.2) 04/03/21 09:51 Hct 41.1 % (35.5-45.6) 04/03/21 09:51 MCV 89 fl (84-94) 04/03/21 09:51 MCH 29 pg (28-32) 04/03/21 09:51 MCHC 33 % (32-34) 04/03/21 09:51 RDW 13.5 % (13.2-15.2) 04/03/21 09:51 Plt Count 419 K/mm3 (140-440) 04/03/21 09:51 Lymph % (Auto) 8.9 % (13.4-35.0) L 04/01/21 04:14 Roberts % (Auto) 2.2 % (0.0-7.3) 04/01/21 04:14 Eos % (Auto) 0.5 % (0.0-4.3) 04/01/21 04:14 Baso % (Auto) 0.3 % (0.0-1.8) 04/01/21 04:14 Lymph # (Auto) 0.9 K/mm3 (1.2-5.4) L 04/01/21 04:14 Roberts # (Auto) 0.2 K/mm3 (0.0-0.8) 04/01/21 04:14 Eos # (Auto) 0.1 K/mm3 (0.0-0.4) 04/01/21 04:14 Baso # (Auto) 0.0 K/mm3 (0.0-0.1) 04/01/21 04:14 Seg Neutrophils % 88.1 % (40.0-70.0) H 04/01/21 04:14 Seg Neutrophils # 9.2 K/mm3 (1.8-7.7) H 04/01/21 04:14 PT 13.9 Sec. (12.2-14.9) 04/03/21 09:51 INR 1.02 (0.87-1.13) 04/03/21 09:51 APTT 38.3 Sec. (24.2-36.6) H 04/03/21 09:51 D-Dimer > 97208 ng/mlDDU (0-234) H 03/31/21 22:26 Heparin Anti-Xa Level 0.48 U.I./ml (0.3-0.7) 04/03/21 13:15 Sodium 141 mmol/L (137-145) 04/03/21 04:10 Potassium 4.0 mmol/L (3.6-5.0) 04/03/21 04:10 Chloride 107.9 mmol/L (98-107) H 04/03/21 04:10 Carbon Dioxide 21 mmol/L (22-30) L 04/03/21 04:10 Anion Gap 16 mmol/L 04/03/21 04:10 BUN 21 mg/dL (9-20) H 04/03/21 04:10 Creatinine 0.8 mg/dL (0.8-1.3) 04/03/21 09:51 Estimated GFR > 60 ml/min 04/03/21 09:51 BUN/Creatinine Ratio 23 % 04/03/21 04:10 Glucose 99 mg/dL (75-100) 04/03/21 04:10 Lactic Acid 1.90 mmol/L (0.7-2.0) 03/31/21 18:44 Calcium 8.5 mg/dL (8.4-10.2) 04/03/21 04:10 Magnesium 2.10 mg/dL (1.7-2.3) 03/31/21 18:44 Ferritin 1118.0 ng/mL (30.0-300.0) H 03/31/21 22:26 Total Bilirubin 0.50 mg/dL (0.1-1.2) 04/03/21 04:10 AST 37 units/L (5-40) 04/03/21 04:10 ALT 95 units/L (7-56) H 04/03/21 04:10 Alkaline Phosphatase 70 units/L (35-129) 04/03/21 04:10 Lactate Dehydrogenase 610 units/L (91-180) H 03/31/21 22:26 Troponin T < 0.010 ng/mL (0.00-0.029) 03/31/21 18:44 C-Reactive Protein 8.90 mg/dL (0.00-1.30) H 03/31/21 22:26 NT-Pro-B Natriuret Pep 66.82 pg/mL (0-900) 03/31/21 18:44 Total Protein 6.7 g/dL (6.3-8.2) 04/03/21 04:10 Albumin 3.1 g/dL (3.9-5) L 04/03/21 04:10 Albumin/Globulin Ratio 0.9 % 04/03/21 04:10 Procalcitonin 0.05 ng/mL (<0.15) 03/31/21 22:26 Coronavirus (PCR) Negative (Negative) 03/31/21 Unknown Microbiology: Microbiology 03/31/21 18:44 Peripheral/Venous Blood Culture - Preliminary NO GROWTH AFTER 48 HOURS 03/31/21 18:54 Peripheral/Venous Blood Culture - Preliminary NO GROWTH AFTER 48 HOURS [place]arr[place]/IV: Voiding Method Bedside Commode Active Medications - Current Medications Current Medications: Generic Name Dose Route Start Last Admin Trade Name Freq PRN Reason Stop Dose Admin Acetaminophen 650 mg 03/31/21 22:47 Acetaminophen 325 Mg Tab PO Q4H PRN Pain MILD(1-3)/Fever >100.5/MOON Albuterol 2.5 mg 03/31/21 22:47 Albuterol 2.5 Mg/3 Ml Nebu IH Q4HRT PRN Shortness Of Breath Albuterol/Ipratropium 1 ampul 04/03/21 08:00 04/03/21 16:14 Ipratropium/Albuterol Sulfate 3 Ml Ampul.Neb IH Not Given TIDRT DARRELL Apixaban 10 mg 04/03/21 10:00 04/03/21 14:27 Apixaban 5 Mg Tab PO 04/09/21 22:01 10 mg Q12HR DARRELL Administration Protocol Apixaban 5 mg 04/10/21 10:00 Apixaban 5 Mg Tab PO Q12HR DARRELL Ascorbic Acid 500 mg 04/01/21 10:00 04/03/21 09:13 Ascorbic Acid 500 Mg Tab PO 500 mg BID DARRELL Administration Dexamethasone 6 mg 04/01/21 10:00 04/03/21 09:13 Dexamethasone 4 Mg/Ml Vial IV 04/09/21 10:01 6 mg DAILY DARRELL Administration Famotidine 20 mg 04/01/21 10:00 04/03/21 09:13 Famotidine 20 Mg Tab PO 20 mg BID DARRELL Administration Hydralazine HCl 10 mg 03/31/21 22:50 04/02/21 22:16 Hydralazine 20 Mg/1 Ml Inj IV 10 mg Q6H PRN Administration Blood Pressure Hydromorphone HCl 0.5 mg 03/31/21 22:47 04/01/21 04:12 Hydromorphone 1 Mg/1 Ml Inj IV 0.5 mg Q3H PRN Administration Pain , Severe (7-10) Ondansetron HCl 4 mg 03/31/21 22:47 Ondansetron 4 Mg/2 Ml Inj IV Q8H PRN Nausea And Vomiting Oxycodone/Acetaminophen 1 tab 03/31/21 22:47 Oxycodone /Acetaminophen 5-325mg Tab PO Q6H PRN Pain, Moderate (4-6) Sodium Chloride 10 ml 04/01/21 10:00 04/03/21 09:14 Sodium Chloride 0.9% 10 Ml Flush Syringe IV 10 ml BID DARRELL Administration Sodium Chloride 10 ml 03/31/21 22:47 04/01/21 21:08 Sodium Chloride 0.9% 10 Ml Flush Syringe IV 10 ml PRN PRN Administration LINE FLUSH Zinc Sulfate 220 mg 04/01/21 10:00 04/03/21 09:13 Zinc Sulfate 220 Mg Cap PO 220 mg QDAY DARRELL Administration
[2021-04-04 06:18] VITALS: BP 125/82
--- NOTE | 2021-04-04 07:23 | Discharge Summary ---
Providers - Providers Date of Admission: 04/03/21 08:47 Date of discharge: 04/04/21 Attending physician: ISAIAS TALAVERA 03/31/21 22:06 Consult to Physician [CONS] Routine Comment: Consulting Provider: QUIANA VILLALTA Physician Instructions: Reason For Exam: pui Primary care physician: COMPOUNDER Hospitalization Reason for admission: Worsening shortness of breath/PE Condition: Stable Pertinent studies: Chest x-ray: moderate patchy multifocal airspace disease, no pneumothorax CTA chest : small acute PE involving the right middle lobe, severe bilateral atypical pneumonia Lower extremity venous Doppler; no sonographic evidence of bilateral DVT ; Hospital course: Note; every conversation with the patient was through language line or sometimes through an Turkish speaking friend of the patient over his personal cell phone. 61-year-old Maltese-speaking male patient with significant past medical history of hypertension was admitted through emergency room with worsening shortness of breath and cough for 4 days duration. In the ER chest x-ray show moderate patchy multifocal airspace disease admitted as PUI subsequently Serra PCR test was done which was negative. However patient continued to be hypoxemic requiring supplemental oxygen. CTA chest was consistent with small PE and patient was started on heparin drip per protocol.. Lower extremity venous Doppler negative for DVT, patient's heparin drip slowly transition to Eliquis per protocols. Initially patient received empiric antibiotics due to patchy airspace disease and multifocal pneumonia however procalcitonin levels are low and antibiotics discontinued ,patient was evaluated for home oxygen and patient required 2 to 3 L of nasal cannula oxygen which was set up along with home health per case management. Today patient is comfortable no new complaints vital signs stable, physical examination prior to discharge did not show any new findings patient is hemodynamically and clinically stable at discharge Today patient is comfortable saturating well on 2 to 3 L of nasal cannula oxygen physical examination prior to discharge did not show any new changes. patient is hemodynamically and clinically stable at discharge, Patient strongly advised to follow with primary care physician, advised to follow-up private hematology oncologist for further evaluation and management of patient's pulmonary embolism patient verbalized understanding through the spanish medical interpreter. patient is stable at discharge Discharge diagnosis: --COVID-19 negative --Pneumonia Current Visit: Yes Status: Acute Empiric antibiotics discontinued as procalcitonin is low -- Pulmonary embolism small [right middle lobe] Current Visit: Yes Status: Acute Chest CTA shows a small PE. Transition heparin drip to Eliquis lower extremity venous Doppler negative for DVT --Acute hypoxic respiratory failure Current Visit: Yes Status: Acute Requiring supplemental oxygen per nasal cannula 4 L/min. DuoNeb by nebulizer every 4 hours. Albuterol via nebulizer every 4 hours as needed. Dexamethasone 6 mg IV daily. Reconsult infectious disease for evaluation, home O2 evaluation Home O2 set up -- Hypertension Current Visit: No Status: Acute Hydralazine 10 mg IV every 6 hours as needed. We will continue the home medication. We will monitor the blood pressure closely --SOB (shortness of breath) Current Visit: Yes Status: Acute Oxygen per nasal cannula 4 L/min. DuoNeb by nebulizer every 4 hours. Albuterol via nebulizer every 4 hours as needed. --DVT prophylaxis Current Visit: No Status: Acute Heparin 5000 units subcu every 8 hours for DVT prophylaxis. Pepcid 20 mg p.o. twice daily for GI prophylaxis. Patient is a full code We will closely monitor the patient and adjust the management as needed Follow lower extremity venous Doppler, and transition to Eliquis after the Doppler report. Patient requires home oxygen, CM to set up home O2 at discharge Stable at discharge Disposition: 01 HOME / SELF CARE / HOMELESS Final Discharge Diagnosis (Prints w/discharge instructions): COVID-19 test negative. Pulmonary embolism. Respiratory failure with hypoxia. Hypertension. Shortness of breath Time spent for discharge: 35 min Core Measure Documentation - Palliative Care Palliative Care/ Comfort Measures: Not Applicable - Core Measures Any of the following diagnoses?: DVT/PE - VTE Discharge Requirements Deep Vein Thrombosis/Pulmonary Embolism Present on Admission: Yes Has pt received <5 days of overlap therapy or INR<2.0: No (Not indicated/on Eliquis) Anticoagulant overlap therapy prescribed at discharge: No Contraindication No Overlap Therapy order at DC: Not Indicated (On Eliquis) Exam - Constitutional Vitals: Temp Pulse Resp BP Pulse Ox 98.1 F 67 20 125/82 97 04/04/21 05:25 04/04/21 05:25 04/04/21 05:25 04/04/21 05:25 04/04/21 05:25 General appearance: Present: no acute distress, well-nourished - EENT Eyes: Present: PERRL, EOM intact - Neck Neck: Present: supple, normal ROM - Respiratory Respiratory effort: normal Respiratory: bilateral: diminished, negative: rales, rhonchi, wheezing - Cardiovascular Rhythm: regular Heart Sounds: Present: S1 & S2 - Extremities Extremities: no ischemia, No edema - Abdominal General gastrointestinal: Present: soft, non-tender, non-distended, normal bowel sounds - Integumentary Integumentary: Present: clear, warm - Musculoskeletal Musculoskeletal: strength equal bilaterally - Psychiatric Psychiatric: appropriate mood/affect, cooperative - Neurologic Neurologic: CNII-XII intact, moves all extremities Plan Activity: no restrictions Diet: regular Durable Medical Equipment Needed Upon Discharge: Oxygen (Home oxygen as needed) Additional Instructions: If you notice any bleeding contact MD or go to the nearest emergency room. As needed. 2 to 3 L nasal cannula home oxygen as needed. Advised to follow primary care physician in 5 to 7 days. Advised to follow private visitor services assistant in ,1- 2 weeks. If you have worsening symptoms contact MD or go to the nearest emergency room as needed Follow up with: PRIMARY CARE, [Primary Care Provider] - 7 Days ROME HERNANDEZ MD [Staff Physician] - 7 Days Prescriptions: Apixaban [Eliquis] 5 mg PO Q12HR #60 tablet Apixaban [Eliquis] 2 tab PO BID #22 tablet Famotidine [Pepcid] 20 mg PO BID #30 tablet Albuterol Mdi (or & Nicu Only) [ProAir HFA Inhaler] 2 puff IH QID PRN #8.5 gram PRN Reason: Shortness Of Breath
[2021-04-04] MEDS: IPRATROPIUM/ALBUTEROL SULFATE 3 ML AMPUL.NEB IH SCH ×2 (08:05→14:10)
[2021-04-04] MEDS: ASCORBIC ACID 500 MG TAB PO SCH (11:28)
[2021-04-04] MEDS: FAMOTIDINE 20 MG TAB PO SCH (11:28)
[2021-04-04] MEDS: APIXABAN 5 MG TAB PO SCH (11:28)
[2021-04-04] MEDS: ZINC SULFATE 220 MG CAP PO SCH (11:28)
--- NOTE | 2021-04-04 11:43 | Progress Note ---
Assessment and Plan Cultures: Blood culture no growth so far A/P: 61 yo M PMHx HTN admitted with PE #PE: anticoagulation per hospital protocol. Recs: -Negative COVID, negative procal. No need for antibiotics. -Anticoagulation per hospital protocol -Proning as able Thank you for the consult, we will sign off. Sara Sanchez MD [facility] ([facility]) O: [phone] F: [phone] Subjective Date of service: 04/04/21 Interval history: Afebrile, normal white count. Negative COVID, negative procalcitonin. Objective - Exam Narrative Exam: Physical exam deferred to reduce risk of transmission of COVID-19. Please refer to primary team's note. - Constitutional Vitals: Vital Signs Temp Pulse Resp BP Pulse Ox 98.1 F 89 18 125/82 97 04/04/21 05:25 04/04/21 08:05 04/04/21 08:05 04/04/21 05:25 04/04/21 05:25 Temperature -Last 24 Hours Temperature 98.1 F Temperature 98.4 F Temperature 97.8 F - Labs CBC & Chem 7: 04/03/21 09:51 04/03/21 09:51
[2021-04-10] MEDS ORDERED: APIXABAN 5 MG TAB PO SCH (10:00)
== END 2021-04-04 18:24 | disposition home or self-care (01) | DRG 175 ==
LOC: ED 18:11 → 3A 22:12 → OBSVTOIN 04-03 08:47
PROVIDERS: ADMIT Hospitalist; ATTEND Internal Medicine
DX: I26.99 Other pulmonary embolism without acute cor pulmonale (principal); J18.9 Pneumonia, unspecified organism; J96.01 Acute respiratory failure with hypoxia; Z20.822 Contact with and (suspected) exposure to COVID-19; I10 Essential (primary) hypertension
CPT/HCPCS: 36415; 71046; 71275; 80048; 80053; 82140; 82565; 82728; 82947; 83615; 83735; 83880; 84145; 84484; 85014; 85018; 85025; 85027; 85049; 85379; 85520; 85610; 85730; 86140; 87040; 93005; 93970; 94640; 94760; G0378; J0360; J0456; J0696; J1100; J1170; J1644; Q9967; U0003